=== PATIENT | male | born 1980 | race Caucasian/White ===

== ENCOUNTER 2023-01-28 14:18 | Emergency (ER) | payer SELFPAY ==
[2023-01-28 14:25] VITALS: RESP 18; TEMP 97.9
[2023-01-28] MEDS ORDERED: DIPH,PERTUS(ACELL)TETVAC-LF 0.5 ML VIAL IM ONE (14:43)
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
[2023-01-28] MEDS ORDERED: IBUPROFEN 600 MG TAB PO STA (15:19)
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
[2023-01-28 17:00] VITALS: BP 114/77; PULSE 90
== END 2023-01-28 17:46 | disposition home or self-care (01) ==
LOC: EC 14:18
DX: S82.142A Displaced bicondylar fracture of left tibia, initial encounter for closed fracture (principal); Z23 Encounter for immunization; V19.9XXA Pedal cyclist (driver) (passenger) injured in unspecified traffic accident, initial encounter; Y93.55 Activity, bike riding
CPT/HCPCS: 90471; 90715; 99284